=== PATIENT | female | born 1970 ===

== ENCOUNTER 2018-01-10 22:24 | Emergency (ER) | payer SELFPAY ==
[2018-01-10 22:45] VITALS: O2SAT 99
[2018-01-10] MEDS ORDERED: Sodium Chloride 0.9% 1,000 ML IV STA (23:43)
--- NOTE | 2018-01-11 00:26 | ED PDOC ---
HPI: General Adult Time Seen by Provider: 01/10/18 22:45 Chief Complaint (Nursing): Flu-like Symptoms Chief Complaint (Provider): Flu-like Symptoms History Per: Patient History/Exam Limitations: no limitations Onset/Duration Of Symptoms: Days (x 1 week) Current Symptoms Are (Timing): Still Present Additional Complaint(s): 47 year old female presents to the ED complaining of subjective fever, headache , dizziness, onset 1 week ago. Patient has had symptoms of a URI for the last 2 weeks. 1 week ago she began to have a headache, dizziness, and a subjective fever. Today, patient had one episode of nbnb vomiting. She had been taking Advil with minor relief of symptoms (last dose 20:00). Denies diarrhea, shortness of breath, chest pain. PMD: none provided Past Medical History Reviewed: Historical Data, Nursing Documentation, Vital Signs Vital Signs: Last Vital Signs Temp 98.7 F 01/11/18 02:55 Pulse 76 01/11/18 02:55 Resp 18 01/11/18 02:55 BP 141/83 01/11/18 02:55 Pulse Ox 99 01/11/18 02:55 - Medical History PMH: Gall Bladder Disease, HTN - Surgical History Surgical History: Cholecystectomy, (x 3) - Family History Family History: States: Unknown Family Hx - Home Medications Home Medications: Ambulatory Orders Medication Instructions Recorded Amoxicillin 500 mg PO BID #14 tablet 01/11/18 - Allergies Allergies/Adverse Reactions: Allergies Allergy/AdvReac Type Severity Reaction Status Date / Time No Known Allergies Allergy Verified 01/10/18 22:43 Review of Systems ROS Statement: Except As Marked, All Systems Reviewed And Found Negative Constitutional: Positive for: Fever Cardiovascular: Negative for: Chest Pain Respiratory: Negative for: Shortness of Breath Gastrointestinal: Positive for: Vomiting (one episode). Negative for: Diarrhea Neurological: Positive for: Headache, Dizziness Physical Exam - Reviewed Nursing Documentation Reviewed: Yes Vital Signs Reviewed: Yes - Physical Exam Appears: Positive for: Non-toxic, No Acute Distress Head Exam: Positive for: ATRAUMATIC, NORMOCEPHALIC Skin: Positive for: Normal Color, Warm, Dry Eye Exam: Positive for: EOMI, Normal appearance, PERRL ENT: Positive for: Nasal Congestion (slight), Other (right otitis media) Neck: Positive for: Normal, Painless ROM, Supple Cardiovascular/Chest: Positive for: Regular Rate, Rhythm Respiratory: Positive for: CNT, Normal Breath Sounds Gastrointestinal/Abdominal: Positive for: Normal Exam, Soft. Negative for: Tenderness Back: Positive for: Normal Inspection. Negative for: L CVA Tenderness Extremity: Positive for: Normal ROM. 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 Negative for: Motor/Sensory Deficits, Aphasia, Facial Droop - ECG O2 Sat by Pulse Oximetry: 99 (RA) Pulse Ox Interpretation: Normal Medical Decision Making Medical Decision Making: Time: 23:43 Initial Plan: dizziness, headache rule out influenza. pt with otitis media on examination which can account for symptoms --Normal Saline IV 999 mls/ hr --Toradol 30 mg IV --Tylenol 650 mg PO --Influenza AB Influenza AB -results are negative patient will be given antibiotics for right otitis media. pt feels better after meds given in the ER. stable vitals. stable for dc. steady gait noted. Scribe Attestation: Documented by Fransisca Perez, acting as a scribe for Shania Sanchez MD. Provider Scribe Attestation: All medical record entries made by the Scribe were at my direction and personally dictated by me. I have reviewed the chart and agree that the record accurately reflects my personal performance of the history, physical exam, medical decision making, and the department course for this patient. I have also personally directed, reviewed, and agree with the discharge instructions and disposition. Disposition - Clinical Impression Clinical Impression: Otitis media - Patient ED Disposition Is Patient to be Admitted: No Counseled Patient/Family Regarding: Studies Performed, Diagnosis, Need For Followup - Disposition Referrals: [facility] [Outside] [facility] [Outside] Disposition: Routine/Home Disposition Time: 00:20 Condition: IMPROVED Additional Instructions: follow up with your primary doctor in 1-2 days return to the ED with any worsening or concerning symptoms Prescriptions: Amoxicillin 500 mg PO BID #14 tablet Instructions: Ear Infections (Otitis Media) (DC) Forms: [facility] [facility] (French)
[2018-01-11 03:12] VITALS: BP 141/83; PULSE 76; RESP 18; TEMP 98.7
== END 2018-01-11 03:01 | disposition home or self-care (01) ==
LOC: H.ER 22:24
DX: H66.91 Otitis media, unspecified, right ear (principal)
CPT/HCPCS: 87804; 96360; 99285; J7040